=== PATIENT | male | born 1950 | race Caucasian/White ===

== ENCOUNTER 2017-06-07 09:15 | Outpatient (CLI) | payer MEDICARE, OTHER ==
[2017-06-07] MEDS ORDERED: ALBUTEROL NEB 2.5 MG/3 ML INH PRN (10:57)
== END 2017-06-07 09:16 | disposition home or self-care (01) ==
LOC: RT 09:15
PROVIDERS: ATTEND Family Medicine
DX: K21.9 Gastro-esophageal reflux disease without esophagitis (principal); J45.909 Unspecified asthma, uncomplicated
CPT/HCPCS: 94060; 94664

== ENCOUNTER 2019-07-29 08:37 | Outpatient (CLI) | payer MEDICARE ==
--- NOTE | 2019-07-29 11:44 | CARDIAC PROCEDURE NOTE ---
DATE OF SERVICE: 07/29/2019 Physician: Sharee Hancokc MD, [facility] INDICATION: Chest pain. CARDIAC RISK FACTORS 1. Male gender. 2. Hypertension. 3. Family history of heart disease. 4. Hyperlipidemia. DESCRIPTION OF PROCEDURE: After signing informed consent, patient underwent a Mitul-protocol treadmill stress test. No cardiac imaging was ordered with this test. RESTING HEART RATE: 72. PEAK HEART RATE: 148 (96% predicted maximum heart rate for age). RESTING BLOOD PRESSURE: 139/76. PEAK BLOOD PRESSURE: 169/88. Patient exercised for 2 minutes and 19 seconds on a Mitul-protocol treadmill stress test. He achieved at peak heart rate of 148 (96% PMHR) and 4.6 METS. Patient became short of breath quickly. He had difficulty accommodating to treadmill walking, his arms were a "tripod position" on the bar and he could not maintain erect posture. Target heart rate was achieved quickly, signifying poor exercise tolerance. Patient did develop his typical chest pain in the final several seconds of exercise. The exercise protocol was stopped due to achieving target heart rate, development of chest pain and development of ventricular ectopy on telemetry. Oxygen saturation was 99% on room air at rest and dropped to 92% at the peak of exercise. RESTING EKG: Normal sinus rhythm, left atrial and right atrial enlargement, vertical or slightly rightward QRS axis, non-specific IVCD, poor R-wave progression. EKG AT PEAK: Extreme right axis deviation develops, frequent PVCs and 2 ventricular couplets seen, no ST segment or T-wave abnormalities develop. In recovery, it took 6 minutes for the chest pain to resolve. The oxygen saturation richard from 92% into the 98% range in less than 1 minute. SUMMARY 1. Abnormal resting EKG suggesting Cor Pulmonale. 2. Very poor exercise tolerance. 3. Typical chest pain developed with exertion, suggesting angina. 4. Ventricular ectopy developed with exercise, consistent with ischemia or desaturation. 5. EKG changes of worsening cor pulmonale develop with exercise. 6. No ST segment or T-wave abnormalities occur. 7. No cardiac imaging was ordered with this test. 8. This patient's cardiac risk based on all the above: High. RECOMMENDATIONS 1. Patient was told to stop his 3-5 miles of daily walking until he has further cardiac and pulmonary testing. 2. Recommend a repeat stress test using cardiac imaging (nuclear or Echo). 3. Recommend pulmonary function testing (his last one was 3-4 years ago). 4. Recommend starting antianginal treatment since he had his typical anginal symptoms develop at a low level of exertion. Dr Cardona was called with these results. TD: 07/29/2019 11:19 MTDD
== END 2019-07-29 08:38 | disposition home or self-care (01) ==
LOC: DI 08:37
PROVIDERS: ATTEND Family Medicine
DX: R07.9 Chest pain, unspecified (principal); R94.31 Abnormal electrocardiogram [ECG] [EKG]; I10 Essential (primary) hypertension; E78.5 Hyperlipidemia, unspecified; Z82.49 Family history of ischemic heart disease and other diseases of the circulatory system
CPT/HCPCS: 93017

== ENCOUNTER 2019-08-16 09:34 | Outpatient (CLI) | payer MEDICARE ==
--- NOTE | 2019-08-16 11:10 | CARDIAC PROCEDURE NOTE ---
DATE OF SERVICE: 08/16/2019 Physician: Sharee Hancock MD, [facility] INDICATIONS 1. Cor pulmonale. 2. Chest pain. 3. Shortness of breath. CARDIAC RISK FACTORS 1. Male gender. 2. Hypertension. 3. Family history of heart disease. 4. Hyperlipidemia. DESCRIPTION OF PROCEDURE: After signing informed consent, patient underwent a Mitul-protocol treadmill stress test with Echo imaging at rest and after exercise. RESTING HEART RATE: 72. PEAK HEART RATE: 121 (79% predicted maximum heart rate for age). RESTING BLOOD PRESSURE: 155/84. PEAK BLOOD PRESSURE: 187/63. Patient exercised for 1 minute and 10 seconds. He got short of breath after 30 seconds of walking, despite using his inhaler immediately before exercise. Patient developed no chest pain, however, he had taken Isosorbide this morning before the test. Patient requested the test to stop since he re reported his perceived exertion at 15/20 on the Vj scale. Oxygen saturation was 95% at rest and dropped to 92% on room air at peak. RESTING EKG: Normal sinus rhythm, left anterior fascicular block, left atrial and right atrial enlargement, nonspecific IVCD, poor R-wave progression. EKG AT PEAK: Rare PVCs, no new ST segment or T-wave changes at this (suboptimal) peak heart rate achieved. SUMMARY: 1. Abnormal resting EKG. 2. Very poor exercise tolerance. 3. No chest pain developed with exertion; he took Isosorbide this morning. 4. Rare PVCs developed with exercise. 5. EKG showed no new ST segment or T-wave abnormalities consistent with ischemia, however this was at a low level of exercise today. 6. Echo images reported separately. 7. This patient's cardiac risk based on all the above: Low-Moderate. RECOMMENDATIONS: 1. PFT testing. 2. Cardiology consult regarding management and further evaluation. 3. Continue empiric anti-anginal treatment. cc: Scotty Cardona DO TD: 08/16/2019 11:00 MTDD
== END 2019-08-16 09:35 | disposition home or self-care (01) ==
LOC: DI 09:34
PROVIDERS: ATTEND Family Medicine
DX: I27.81 Cor pulmonale (chronic) (principal); R94.31 Abnormal electrocardiogram [ECG] [EKG]; I10 Essential (primary) hypertension; E78.5 Hyperlipidemia, unspecified; Z82.49 Family history of ischemic heart disease and other diseases of the circulatory system
CPT/HCPCS: 93350

== ENCOUNTER 2021-10-17 11:51 | Outpatient (CLI) | payer MEDICARE ==
--- NOTE | 2021-10-17 15:54 | XRAY Report ---
PROCEDURE: Finger(s) RT INDICATIONS: DISLOCATION OF PIP JOINT OF RIGHT RING FINGER, INITIAL ENCOUNTER TECHNIQUE: AP hand, 2 views of the right fourth finger(s) acquired. COMPARISON: None FINDINGS: Bones: No fractures or dislocations. No suspicious bony lesions. Soft tissues: No suspicious soft tissue calcifications. IMPRESSION: No fracture. No acute osseous lesion. If symptoms and/or clinical concern for pathology persists, fur ther assessment with repeat plain film radiographs (7-10 days) or advanced imaging (CT, MR, bone scan ) should be considered. Reviewed by: Chani Padilla MD, PhD on 10/17/2021 3:53 PM PDT Approved by: Chani Padilla MD, PhD on 10/17/2021 3:53 PM PDT Station ID: [id number]
== END 2021-10-17 11:52 | disposition home or self-care (01) ==
LOC: DI 11:51
PROVIDERS: ATTEND Family Medicine
DX: S63.274A Dislocation of unspecified interphalangeal joint of right ring finger, initial encounter (principal)